=== PATIENT | female | born 1990 | race Caucasian/White ===

== ENCOUNTER 2023-05-30 19:45 | Inpatient (IN) | payer BC ==
[~2023-05-30] VITALS: Ht 165.1 cm; Wt 115.0 kg
[2023-05-30 20:08] VITALS: BP 133/65
[2023-05-30] MEDS ORDERED: IRON18 MG PO (20:28)
[2023-05-30] MEDS ORDERED: PRENATAL TABLE1 EAC2 PO (20:28)
[2023-05-31] VITALS (35 sets, daily range): BP systolic 103–144; BP diastolic 51–85
[2023-05-31 00:26] LABS: BASOPHILS ABSOLUTE AUTO 0.04 K/mm3 (0.00-0.23); BASOPHILS PERCENT AUTO 0 % (0-2); EOSINOPHILS ABSOLUTE AUTO 0.09 K/mm3 (0.00-0.68); EOSINOPHILS PERCENT AUTO 1 % (0-6); Hematocrit 35.4 % (33.0-51.0); Hemoglobin 11.8 g/dL (11.5-16.0); IMMATURE GRAN ABSOLUTE AUTO 0.05 K/mm3 (0.00-0.10); IMMATURE GRAN PERCENT AUTO 0 % (0-1); LYMPHOCYTES ABSOLUTE AUTO 2.77 K/mm3 (0.84-5.20); LYMPHOCYTES PERCENT AUTO 23 % (21-46); MONOCYTES PERCENT AUTO 4 % (4-13); Mean Corpuscular HGB 27.5 pg (26.0-34.0); Mean Corpuscular HGB Conc 33.3 g/dL (31.5-36.5); Mean Corpuscular Volume 83 fL (80-100); NEUTROPHILS ABSOLUTE AUTO 8.67 K/mm3 (1.96-9.15); NEUTROPHILS PERCENT AUTO 72 % (41-73); Platelet Count 335 K/mm3 (150-400); RDW Coefficient Variation 15.5 % (11.7-14.2); RDW Standard Deviation 46.5 fL (35.1-46.3); Red Blood Cell Count 4.29 M/mm3 (3.80-5.20); White Blood Cell Count 12.12 K/mm3 (4.00-11.30)
--- NOTE | 2023-05-31 19:37 | NUR ---
05/31/231936 Jaxon Cain BABY GIRL BORN AT 1918. CORD BLOOD SENT WITH OB RN. CORD SEGMENT SENT WITH RT. EPIDURAL AND ZAMORA CATH PRESENT UPON PT'S ARRIVAL TO OR.
[2023-05-31 19:57] LABS: PCO2 Cord - Venous 65.2 mmHg (40-50); PO2 Cord - Venous 28.4 mmHg (28-32); pH Umbilical Cord - Venous 6.91 (7.26-7.35)
[2023-05-31 20:01] LABS: PCO2 Cord - Arterial 71.7 mmHg (40-50); pH Cord - Arterial 6.83 (7.28-7.35)
[2023-05-31 20:02] LABS: PO2 Cord - Arterial < 50 mmHg (16-20)
[2023-06-01 00:09] VITALS: BP 134/72
[2023-06-01 04:17] VITALS: BP 122/67
[2023-06-01 06:34] LABS: Mean Corpuscular HGB 28.5 pg (26.0-34.0); Mean Corpuscular HGB Conc 34.5 g/dL (31.5-36.5); Mean Corpuscular Volume 83 fL (80-100); Mean Platelet Volume 10.4 fL (9.1-12.4); Platelet Count 251 K/mm3 (150-400); RDW Coefficient Variation 15.8 % (11.7-14.2); RDW Standard Deviation 47.5 fL (35.1-46.3); Red Blood Cell Count 3.51 M/mm3 (3.80-5.20); White Blood Cell Count 25.56 K/mm3 (4.00-11.30)
[2023-06-01 07:03] LABS: BAND PERCENT MAN 13 % (0-8); BASOPHILS PERCENT MAN 0 % (0-2); EOSINOPHILS PERCENT MAN 0 % (0-6); LYMPHOCYTES PERCENT MAN 9 % (21-46); MONOCYTES ABSOLUTE MAN 0.51 K/mm3 (0.16-1.47); MONOCYTES PERCENT MAN 2 % (4-13); NEUTROPHILS ABSOLUTE MAN 22.74 K/mm3 (1.96-9.15); SEG NEUTROPHILS PERCENT MAN 76 % (41-73); TOTAL CELLS COUNTED 100
[2023-06-01 08:56] VITALS: BP 120/72
[2023-06-01 12:40] VITALS: BP 119/66
[2023-06-01 16:09] VITALS: BP 136/75
[2023-06-01 19:36] VITALS: BP 121/62
[2023-06-02 00:23] VITALS: BP 116/66
[2023-06-02 04:14] VITALS: BP 120/76
[2023-06-02 07:51] VITALS: BP 126/73
[2023-06-02 12:09] VITALS: BP 133/73
[2023-06-02] MEDS ORDERED: IBUP800 PO (13:49)
[2023-06-02] MEDS ORDERED: Percocet 5-3251 EACH PO (13:49)
[2023-06-02] MEDS ORDERED: DOCU100 PO (13:50)
[2023-06-02 16:10] VITALS: BP 124/91
[2023-06-02 16:12] VITALS: BP 128/81
[2023-06-03 05:36] VITALS: BP 148/72
[2023-06-03 07:54] VITALS: BP 138/95
[2023-06-03 11:16] VITALS: BP 137/73
[2023-06-03 12:45] LABS: Hematocrit 28.5 % (33.0-51.0); Hemoglobin 9.7 g/dL (11.5-16.0); Mean Corpuscular Volume 82 fL (80-100); Mean Platelet Volume 9.8 fL (9.1-12.4); Platelet Count 310 K/mm3 (150-400); RDW Coefficient Variation 15.9 % (11.7-14.2); RDW Standard Deviation 47.8 fL (35.1-46.3); Red Blood Cell Count 3.47 M/mm3 (3.80-5.20)
--- NOTE | 2023-06-03 12:49 | NUR ---
DISCHARGE INSTRUCTIONS, WRITTEN AND VERBAL, GIVEN TO PT AND Lucrecia WALKER. ANSWERED ALL QUESTIONS AND CONCERNS. FOLLOW UP APPOITNMENT SCHEDULED. [place] SCORE OR 0. PT IS DICHARGED TO BOARDER STATUS.
[2023-06-03 14:44] VITALS: BP 133/76
== END 2023-06-03 14:50 | disposition home or self-care (01) | DRG 788 ==
LOC: OBS 19:45 → BC 19:52 → OBS 20:04 → BC 20:10
PROVIDERS: Obstetrics & Gynecology; ADMIT Advanced Practice Midwife
PROC: 10D00Z1 Extraction of Products of Conception, Low, Open Approach (ICD-10-PCS; 2023-05-31)
PROC: 4A033R1 Measurement of Arterial Saturation, Peripheral, Percutaneous Approach (ICD-10-PCS; 2023-05-31)
PROC: 3E033VJ Introduction of Other Hormone into Peripheral Vein, Percutaneous Approach (ICD-10-PCS; principal; 2023-05-31 18:45)
DX: O48.0 Post-term pregnancy (principal); O42.02 Full-term premature rupture of membranes, onset of labor within 24 hours of rupture; O77.0 Labor and delivery complicated by meconium in amniotic fluid; Z3A.41 41 weeks gestation of pregnancy; Z37.0 Single live birth; Z98.818 Other dental procedure status; Z98.890 Other specified postprocedural states; Z79.899 Other long term (current) drug therapy; Z67.10 Type A blood, Rh positive
CPT/HCPCS: 36415; 82803; 85025; 85027; 86850; 86900; 86901; 86923; A9270; J0171; J0290; J0456; J0690; J1100; J1885; J2001; J2371; J2405; J2590; J2765; J3010; J7050; J7120

== ENCOUNTER 2023-09-26 19:21 | Emergency (ER) | payer BC ==
[~2023-09-26] VITALS: Ht 165.1 cm; Wt 103.4 kg
[~2023-09-26 19:21] MED LIST: DOCU100 PO; IBUP800 PO; IRON18 MG PO; PRENATAL TABLE1 EAC2 PO; Percocet 5-3251 EACH PO
[2023-09-26 19:30] VITALS: BP 159/110
== END 2023-09-26 19:39 | disposition home or self-care (01) ==
LOC: ER 19:21
DX: R04.0 Epistaxis (principal); Z79.899 Other long term (current) drug therapy
CPT/HCPCS: A9270

== ENCOUNTER 2024-03-25 08:51 | Emergency (ER) | payer BC ==
[~2024-03-25] VITALS: Ht 165.1 cm; Wt 90.7 kg
[2024-03-25] MEDS ORDERED: Ondansetron HCl 2 MG / ML 2ML Vial IV ONE ×2 (09:00→12:15)
[2024-03-25] MEDS ORDERED: Ketorolac Tromethamine 15mg Vial IV ONE ×2 (09:00→12:15)
[2024-03-25] MEDS ORDERED: NS 1,000 ML IV SCH ×2 (09:00→12:15)
[2024-03-25 09:45] LABS: Influenza A, PCR NEGATIVE (NEGATIVE); Influenza B, PCR NEGATIVE (NEGATIVE); Resp Syncytial Virus, PCR NEGATIVE (NEGATIVE); SARS-Cov-2 (COVID-19) PCR, MMC NEGATIVE (NEGATIVE)
[2024-03-25 09:49] LABS: BASOPHILS ABSOLUTE AUTO 0.06 K/mm3 (0.00-0.23); BASOPHILS PERCENT AUTO 0 % (0-2); EOSINOPHILS ABSOLUTE AUTO 0.09 K/mm3 (0.00-0.68); EOSINOPHILS PERCENT AUTO 1 % (0-6); Hematocrit 38.6 % (33.0-51.0); Hemoglobin 12.7 g/dL (11.5-16.0); IMMATURE GRAN ABSOLUTE AUTO 0.06 K/mm3 (0.00-0.10); IMMATURE GRAN PERCENT AUTO 0 % (0-1); LYMPHOCYTES ABSOLUTE AUTO 2.67 K/mm3 (0.84-5.20); LYMPHOCYTES PERCENT AUTO 19 % (21-46); MONOCYTES ABSOLUTE AUTO 0.49 K/mm3 (0.16-1.47); MONOCYTES PERCENT AUTO 4 % (4-13); Mean Corpuscular HGB 27.3 pg (26.0-34.0); Mean Corpuscular HGB Conc 32.9 g/dL (31.5-36.5); Mean Corpuscular Volume 83 fL (80-100); Mean Platelet Volume 9.9 fL (9.1-12.4); NEUTROPHILS ABSOLUTE AUTO 10.53 K/mm3 (1.96-9.15); NEUTROPHILS PERCENT AUTO 76 % (41-73); Platelet Count 415 K/mm3 (150-400); RDW Standard Deviation 42.3 fL (35.1-46.3); Red Blood Cell Count 4.65 M/mm3 (3.80-5.20)
[2024-03-25 10:07] LABS: Albumin, Blood 3.4 g/dL (3.4-5.0); Albumin/Globulin Ratio 0.8 (0.8-1.8); Bilirubin, Total 0.3 mg/dL (0.1-1.0); Bun/Creatinine Ratio 21.5 (12.0-20.0); Calcium, Blood 8.7 mg/dL (8.5-10.1); Creatinine, Blood 0.74 mg/dL (0.40-1.00); Globulin, Blood 4.4 g/dL (2.2-4.0); Potassium, Blood 3.9 mmol/L (3.5-5.5); Total Protein, Blood 7.8 g/dL (6.4-8.2)
[2024-03-25 11:11] LABS: Source, Urine Clean Catch
[2024-03-25 11:14] LABS: Appearance, Urine Clear (Clear); Bilirubin, Urine Neg (Neg); Blood, Urine 2+ (Neg); Glucose Qualitative, Urine Neg (Neg); Ketones, Urine Neg (Neg); Leukocyte Esterase, Urine Neg (Neg); Nitrite, Urine Neg (Neg); Protein, Urine 2+ (Neg); Urobilinogen, Urine NORM (Normal)
[2024-03-25 11:19] LABS: Color, Urine Pale Yellow (P-Yellow)
[2024-03-25 11:21] LABS: Bacteria Rare /hpf; Squamous Epithelial Cells Few /hpf (Few); White Blood Cells, Urine 0-2 /hpf (0-5)
[2024-03-25 12:53] VITALS: BP 113/72
== END 2024-03-25 13:48 | disposition home or self-care (01) ==
LOC: ER 08:51
PROVIDERS: Student in an Organized Health Care Education/Training Program
DX: R10.12 Left upper quadrant pain (principal)
CPT/HCPCS: 0241U; 74177; 80053; 81001; 81025; 83690; 85025; 96361; 96374-59; 96375; 99284-25; J1885; J2405; J7030; Q9967